=== PATIENT | female | born 1970 | race Caucasian/White ===

== ENCOUNTER 2016-06-24 17:48 | Emergency (ER) | payer OTHER ==
--- NOTE | 2016-06-24 20:25 | DIAGNOSTIC IMAGING REPORT ---
PROCEDURE: XR KNEE 4 VIEWS - RIGHT INDICATION: TRAUMA/INJURY TECHNIQUE: Four views. COMPARISON: None. FINDINGS: Status post right total knee prosthesis with prosthetic components in satisfactory position. Osseous structures and joint spaces are normal. No evidence of fracture. IMPRESSION: 1. Status post right total knee prosthesis. 2. Otherwise negative right knee. 3. Findings discussed with Dr. Shai Ojeda.
--- NOTE | 2016-06-24 20:28 | ED CLINICAL REPORT ---
Clinical Report - Physicians/Mid Levels [facility] [address] [place] [address] 06/24/2016 17:50 Patient: NATALIE HUNTLEY Time Seen: 18:05; initial patient contact. Arrived- By private vehicle. Historian- patient. HISTORY OF PRESENT ILLNESS Location of injuries- right knee. Chief Complaint: FALL. The injury occurred just prior to arrival. Fell and landed on a wood surface; tripped. No fainting episodes. Occurred at home. The patient complains of severe pain. No blow to the head or loss of consciousness. REVIEW OF SYSTEMS The patient complains of pain on weight bearing. No numbness, dizziness, weakness or laceration. All systems otherwise negative, except as recorded above. PAST HISTORY Appendectomy. Knee Surgeryx 2(2nd one TKR). Problems: no known problems. Medications: Aleve Oral. Dilaudid Oral. Ibuprofen Oral. Allergies: Penicillins. SOCIAL HISTORY Never smoker. Occasional alcohol use. No drug use. ADDITIONAL NOTES The nursing notes have been reviewed. PHYSICAL EXAM Vital Signs: 06/24/2016 18:05 BP: 158/102. HR: 87. RR: 20. O2 saturation: 98%. Temp: 98.2 F. Pain level now: 9/10. Have been reviewed. Hypertensive. Heart rate normal. Respiratory rate normal. Temperature normal. Oxygen saturation normal. Appearance: Alert. Oriented X3. Appears to be in pain. ENT: Pharynx normal. Respiratory: No respiratory distress. Skin: Skin intact. Skin warm and dry. Normal skin color. Extremities: Right knee: moderate tenderness. Limited ROM secondary to pain (diminished extension). Neurovascular intact distally. (Well healed TKR scar). No erythema, swelling, abrasion, ecchymosis or deformity. Extremities atraumatic. Neuro: Oriented X 3. No motor deficit. No sensory deficit. LABS, X-RAYS, AND EKG Rt Knee X-ray: No fracture. Normal alignment. No bony lesion, air in the soft tissue or foreign body. Soft tissues normal. Joint spaces normal. (Nl hardware allignment). Views: AP, lateral and oblique. Technique: good. The X-rays were independently viewed by me, interpreted by the radiologist and discussed with the radiologist. Prior films were not available for comparison. Interpretation time: 20:27. PROGRESS AND PROCEDURES Disposition: Discharged home in good and improved condition. Condition: good. CLINICAL IMPRESSION Sprain of the right knee. INSTRUCTIONS Wear knee immobilizer until released. No weight bearing on right leg until released. Your Current Medications: CONTINUE TAKING THE FOLLOWING MEDICATIONS: Aleve Oral. Dilaudid Oral. Ibuprofen Oral. Prescription Medications: Hydrocodone/APAP 5mg / 325mg: take 1 orally every 6 hours. Dispense fifteen (15). No refill. Baclofen 10 mg: take 1 orally every 8 hours. Dispense thirty (30). No refills. Follow-up: Follow up with your doctor tomorrow. Call for an appointment. Screening today revealed the patient's blood pressure to be in the hypertensive range. The patient should follow up with a primary care provider for blood pressure management. (Electronically signed by Shai Ojeda Dr. 06/24/2016 21:50)
--- NOTE | 2016-06-24 20:28 | ED ORDER SUMMARY ---
..... Patient: NATALIE HUNTLEY OrderSheet [facility] VisitID: [id number] [address] [place] [address] 45y, F Registration Date/Time: 06/24/2016 ORDER SHEET Weight: 104.3 kg (stated) Allergies: Penicillins GENERAL ORDERS: Knee 4V Right Urgent (18:43 06/24/2016 Christiano Traore) (Ack 18:[facility] (19:17 RFay) Immobilizer - knee (19:51 06/24/2016 Christiano Traoer) (20:03 Nancy R.NJonathan) MEDICATION ORDERS: Dilaudid IM 1 mg (HIGH ALERT MEDICATION, NOW) (18:43 06/24/2016 Christiano Traore) (18:58 Omid R.N.) IV FLUIDS: ORDER SHEET NOTES: [Electronically signed by Erin Pham R.N. (20:43 06/24/2016)] [Electronically signed by Shai Ojeda Dr. (21:50 06/24/2016)] [Electronically locked/signed by Erin Pham R.N. (20:43 06/24/2016)]
--- NOTE | 2016-06-24 20:28 | ED ORDER SUMMARY ---
..... Patient: NATALIE HUNTLEY OrderSheet [facility] VisitID: [id number] [address] [place] [address] 45y, F Registration Date/Time: 06/24/2016 ORDER SHEET Weight: 104.3 kg (stated) Allergies: Penicillins GENERAL ORDERS: Knee 4V Right Urgent (18:43 06/24/2016 Christiano Traore) (Ack 18:46 [facility]) (19:17 RFay) Immobilizer - knee (19:51 06/24/2016 Christiano Traore) (20:03 Nancy R.NJonathan) MEDICATION ORDERS: Dilaudid IM 1 mg (HIGH ALERT MEDICATION, NOW) (18:43 06/24/2016 Christiano Traore) (18:58 Omid R.N.) IV FLUIDS: ORDER SHEET NOTES: [Electronically signed by Erin Pham R.N. (20:43 06/24/2016)] [Electronically signed by Shai Ojeda Dr. (21:50 06/24/2016)] [Electronically locked/signed by Erin Pham R.N. (20:43 06/24/2016)]
--- NOTE | 2016-06-24 20:28 | ED CLINICAL REPORT ---
Clinical Report - Physicians/Mid Levels [facility] [address] [place] [address] 06/24/2016 17:50 Patient: NATALIE HUNTLEY Time Seen: 18:05; initial patient contact. Arrived- By private vehicle. Historian- patient. HISTORY OF PRESENT ILLNESS Location of injuries- right knee. Chief Complaint: FALL. The injury occurred just prior to arrival. Fell and landed on a wood surface; tripped. No fainting episodes. Occurred at home. The patient complains of severe pain. No blow to the head or loss of consciousness. REVIEW OF SYSTEMS The patient complains of pain on weight bearing. No numbness, dizziness, weakness or laceration. All systems otherwise negative, except as recorded above. PAST HISTORY Appendectomy. Knee Surgeryx 2(2nd one TKR). Problems: no known problems. Medications: Aleve Oral. Dilaudid Oral. Ibuprofen Oral. Allergies: Penicillins. SOCIAL HISTORY Never smoker. Occasional alcohol use. No drug use. ADDITIONAL NOTES The nursing notes have been reviewed. PHYSICAL EXAM Vital Signs: 06/24/2016 18:05 BP: 158/102. HR: 87. RR: 20. O2 saturation: 98%. Temp: 98.2 F. Pain level now: 9/10. Have been reviewed. Hypertensive. Heart rate normal. Respiratory rate normal. Temperature normal. Oxygen saturation normal. Appearance: Alert. Oriented X3. Appears to be in pain. ENT: Pharynx normal. Respiratory: No respiratory distress. Skin: Skin intact. Skin warm and dry. Normal skin color. Extremities: Right knee: moderate tenderness. Limited ROM secondary to pain (diminished extension). Neurovascular intact distally. (Well healed TKR scar). No erythema, swelling, abrasion, ecchymosis or deformity. Extremities atraumatic. Neuro: Oriented X 3. No motor deficit. No sensory deficit. LABS, X-RAYS, AND EKG Rt Knee X-ray: No fracture. Normal alignment. No bony lesion, air in the soft tissue or foreign body. Soft tissues normal. Joint spaces normal. (Nl hardware allignment). Views: AP, lateral and oblique. Technique: good. The X-rays were independently viewed by me, interpreted by the radiologist and discussed with the radiologist. Prior films were not available for comparison. Interpretation time: 20:27. PROGRESS AND PROCEDURES Disposition: Discharged home in good and improved condition. Condition: good. CLINICAL IMPRESSION Sprain of the right knee. INSTRUCTIONS Wear knee immobilizer until released. No weight bearing on right leg until released. Your Current Medications: CONTINUE TAKING THE FOLLOWING MEDICATIONS: Aleve Oral. Dilaudid Oral. Ibuprofen Oral. Prescription Medications: Hydrocodone/APAP 5mg / 325mg: take 1 orally every 6 hours. Dispense fifteen (15). No refill. Baclofen 10 mg: take 1 orally every 8 hours. Dispense thirty (30). No refills. Follow-up: Follow up with your doctor tomorrow. Call for an appointment. Screening today revealed the patient's blood pressure to be in the hypertensive range. The patient should follow up with a primary care provider for blood pressure management. (Electronically signed by Shai Ojeda Dr. 06/24/2016 21:50)
--- NOTE | 2016-06-24 20:28 | ED NURSING NOTES ---
Clinical Report - Nurses [facility] [address] [address] 06/24/2016 17:50 Patient: NATALIE HUNTLEY TRIAGE Triage time 18:05. Acuity: LEVEL 3. Chief Complaint: INJURY TO RIGHT KNEE. DAKSHA COMA SCORE: [place] Coma Scale: 15- eyes open spontaneously (4); best verbal response- oriented x 4 (5); best motor response- obeys commands (6). --18:13 Mary Musa R.N. 18:05 06/24/16. BP: 158/102. HR: 87. RR: 20. O2 saturation: 98%. Temp: 98.2 F (oral). Pain level now: 12/12. --18:13 Mary Musa R.N. Weight: 104.3 kg stated. Height/Length: 68 inches Per Patient. BMI: 35. --18:08 Mary Musa R.N. Medications Aleve Oral. Dilaudid Oral. Ibuprofen Oral. --18:06 Mary Musa R.N. Medication/allergy information source: the patient. --18:13 Mary Musa R.N. Allergies Penicillins. --18:07 Mary Musa R.N. History Arrived by private vehicle. Historian: patient. Accompanied by family. Primary physician (Beatriz). This occurred just prior to arrival. Mechanism of injury: fell while walking and landed on a wood surface. PAST MEDICAL HX: Last normal menstrual period- has IUD. SOCIAL HX: Smoker- current status unknown (no). Alcohol use; consumes liquor daily. No drug use. LEARNING NEEDS ASSESSMENT: The learning needs assessment revealed no barriers. FALL RISK ASSESSMENT: Fall risk assessment completed. Risk factors identified include patient history of fall and impairment of mobility. FUNCTIONAL ASSESSMENT: Functional assessment performed: independent with the activities of daily living; mobility impairment present- this mobility impairment is a new problem. crutches. --18:13 Mary Musa R.N. PROBLEMS: no known problems. ADDITIONAL SURGERIES: Appendectomy. Knee Surgery. --18:07 Mary Musa R.N. Assessment GENERAL / NEURO / PSYCH: The patient is awake and alert and appears in pain and uncomfortable. She is oriented and cooperative. RESPIRATORY: Respirations not labored. SKIN: Skin is warm and dry. --18:13 Mary Musa R.N. Interventions ID and allergy band on patient. To treatment room. --18:13 Mary Musa R.N. PHYSICAL ASSESSMENT 18:18 06/24/16. Ambulatory to room. Patient gowned. GENERAL / NEURO / PSYCH: Oriented X 4. Alert. SKIN: Skin is warm and dry. --18:18 Mary Musa R.N. NURSING PROGRESS NOTES <<STRICKEN ENTRY-- 18:19 06/24/16. No immobilizer applied. Call light placed in reach. Side rails up x 1. Bed placed in lowest position. Brakes of bed on. --18:20 Mary Musa R.N. --END STRIKE>> Correction --18:28 Mary Musa R.N. 18:19 06/24/16. Call light placed in reach. Side rails up x 1. Bed placed in lowest position. Brakes of bed on. --18:28 Mary Musa R.N. 18:50 06/24/2016 Dilaudid (HYDROmorphone HCl PF) IM 1 mg given. Given in the left ventral gluteus. Allergies verified, confirmed 5 rights and sedative warning given to the patient. --18:58 Mary Musa R.N. 19:08 06/24/16. Care transferred and report received (from ELVIRA Hernandez). --19:08 Erin Pham R.N. 19:16 06/24/16. Reassessment after medication administered. She has had no adverse reaction. Overall patient status is improved- she states feels better. Patient waiting for radiology results and disposition. --19:16 Erin Pham R.N. 19:16 06/24/16. BP: 147/98. HR: 76. RR: 18. O2 saturation: 97%. Pain level now 7/10. --19:16 Erin Pham R.N. Immobilizer applied to right knee by traffic analysis technician; distal pulses intact, sensation intact and motor function within normal limits. --20:16 Jose D Hutchins 20:19 06/24/16. Patient waiting for disposition. --20:19 Erin Pham R.N. 20:19 06/24/16. BP: 146/105. HR: 90. RR: 18. O2 saturation: 100%. Temp: 98.0 F. Pain level now 10/11. --20:19 Erin Pham R.N. DISPOSITION / DISCHARGE 20:33 06/24/16. Condition at departure: improved and stable. The goals identified in the patient's plan of care were met. ( GCS 15). --20:33 Erin Pham R.N. 20:33 06/24/16. BP: 146/105. HR: 94. RR: 18. O2 saturation: 100%. Temp: 98.0 F. Pain level now 10/11. --20:33 Erin Pham R.N. 20:43 06/24/16. Departure time: :Jun 24 2016. No learning barriers present. Discharge instructions provided and reviewed with the patient. Reviewed medication(s) side effects, precautions, dosing and course information. Prescription(s) given to the patient. Reviewed referral to an orthopedic surgeon for followup. Summary of care provided to patient via paper. Patient verbalized understanding. Written instructions provided in Samoan. The patient was discharged home and accompanied by family. She left the Emergency Department ambulatory on crutches and via private vehicle. Family member driving. --20:43 Erin Pham R.N. Locked/Released at 06/24/2016 20:43 by Erin Pham R.N.
--- NOTE | 2016-06-24 20:28 | ED NURSING NOTES ---
Clinical Report - Nurses [facility] [place] [address] 06/24/2016 17:50 Patient: NATALIE HUNTLEY TRIAGE Triage time 18:05. Acuity: LEVEL 3. Chief Complaint: INJURY TO RIGHT KNEE. DAKSHA COMA SCORE: [place] Coma Scale: 15- eyes open spontaneously (4); best verbal response- oriented x 4 (5); best motor response- obeys commands (6). --18:13 Mary Musa R.N. 18:05 06/24/16. BP: 158/102. HR: 87. RR: 20. O2 saturation: 98%. Temp: 98.2 F (oral). Pain level now: 12/12. --18:13 Mary Musa R.N. Weight: 104.3 kg stated. Height/Length: 68 inches Per Patient. BMI: 35. --18:08 Mary Musa R.N. Medications Aleve Oral. Dilaudid Oral. Ibuprofen Oral. --18:06 Mary Musa R.N. Medication/allergy information source: the patient. --18:13 Mary Musa R.N. Allergies Penicillins. --18:07 Mary Musa R.N. History Arrived by private vehicle. Historian: patient. Accompanied by family. Primary physician (Beatriz). This occurred just prior to arrival. Mechanism of injury: fell while walking and landed on a wood surface. PAST MEDICAL HX: Last normal menstrual period- has IUD. SOCIAL HX: Smoker- current status unknown (no). Alcohol use; consumes liquor daily. No drug use. LEARNING NEEDS ASSESSMENT: The learning needs assessment revealed no barriers. FALL RISK ASSESSMENT: Fall risk assessment completed. Risk factors identified include patient history of fall and impairment of mobility. FUNCTIONAL ASSESSMENT: Functional assessment performed: independent with the activities of daily living; mobility impairment present- this mobility impairment is a new problem. crutches. --18:13 Mary Musa R.N. PROBLEMS: no known problems. ADDITIONAL SURGERIES: Appendectomy. Knee Surgery. --18:07 Mary Musa R.N. Assessment GENERAL / NEURO / PSYCH: The patient is awake and alert and appears in pain and uncomfortable. She is oriented and cooperative. RESPIRATORY: Respirations not labored. SKIN: Skin is warm and dry. --18:13 Mary Musa R.N. Interventions ID and allergy band on patient. To treatment room. --18:13 Mary Musa R.N. PHYSICAL ASSESSMENT 18:18 06/24/16. Ambulatory to room. Patient gowned. GENERAL / NEURO / PSYCH: Oriented X 4. Alert. SKIN: Skin is warm and dry. --18:18 Mary Musa R.N. NURSING PROGRESS NOTES <<STRICKEN ENTRY-- 18:19 06/24/16. No immobilizer applied. Call light placed in reach. Side rails up x 1. Bed placed in lowest position. Brakes of bed on. --18:20 Mary Musa R.N. --END STRIKE>> Correction --18:28 Mary Musa R.N. 18:19 06/24/16. Call light placed in reach. Side rails up x 1. Bed placed in lowest position. Brakes of bed on. --18:28 Mary Musa R.N. 18:50 06/24/2016 Dilaudid (HYDROmorphone HCl PF) IM 1 mg given. Given in the left ventral gluteus. Allergies verified, confirmed 5 rights and sedative warning given to the patient. --18:58 Mary Musa R.N. 19:08 06/24/16. Care transferred and report received (from ELVIRA Hernandez). --19:08 Erin Pham R.N. 19:16 06/24/16. Reassessment after medication administered. She has had no adverse reaction. Overall patient status is improved- she states feels better. Patient waiting for radiology results and disposition. --19:16 Erin Pham R.N. 19:16 06/24/16. BP: 147/98. HR: 76. RR: 18. O2 saturation: 97%. Pain level now 7/10. --19:16 Erin Pham R.N. Immobilizer applied to right knee by plant and maintenance technician; distal pulses intact, sensation intact and motor function within normal limits. --20:16 Jose D Hutchins 20:19 06/24/16. Patient waiting for disposition. --20:19 Erin Pham R.N. 20:19 06/24/16. BP: 146/105. HR: 90. RR: 18. O2 saturation: 100%. Temp: 98.0 F. Pain level now 10/11. --20:19 Erin Pham R.N. DISPOSITION / DISCHARGE 20:33 06/24/16. Condition at departure: improved and stable. The goals identified in the patient's plan of care were met. ( GCS 15). --20:33 Erin Pham R.N. 20:33 06/24/16. BP: 146/105. HR: 94. RR: 18. O2 saturation: 100%. Temp: 98.0 F. Pain level now 10/11. --20:33 Erin Pham R.N. 20:43 06/24/16. Departure time: :Jun 24 2016. No learning barriers present. Discharge instructions provided and reviewed with the patient. Reviewed medication(s) side effects, precautions, dosing and course information. Prescription(s) given to the patient. Reviewed referral to an orthopedic surgeon for followup. Summary of care provided to patient via paper. Patient verbalized understanding. Written instructions provided in Barbadian. The patient was discharged home and accompanied by family. She left the Emergency Department ambulatory on crutches and via private vehicle. Family member driving. --20:43 Erin Pham R.N. Locked/Released at 06/24/2016 20:43 by Erin Pham R.N.
--- NOTE | 2016-06-24 21:50 | ED DISCHARGE INSTRUCTIONS ---
Patient: NATALIE HUNTLEY General Instructions [facility] VisitID: [id number] [place] [address] 45y, F Registration Date/Time: 06/24/2016 Sprain of the right knee. INSTRUCTIONS Wear knee immobilizer until released. No weight bearing on right leg until released. Your Current Medications: CONTINUE TAKING THE FOLLOWING MEDICATIONS: Aleve Oral. Dilaudid Oral. Ibuprofen Oral. Prescription Medications: Hydrocodone/APAP 5mg / 325mg: take 1 orally every 6 hours. Dispense fifteen (15). No refill. Baclofen 10 mg: take 1 orally every 8 hours. Dispense thirty (30). No refills. Follow-up: Follow up with your doctor tomorrow. Call for an appointment. Screening today revealed the patient's blood pressure to be in the hypertensive range. The patient should follow up with a primary care provider for blood pressure management. ADDITIONAL INFORMATION Hydrocodone Bitartrate, Acetaminophen Oral tablet What is this medicine? ACETAMINOPHEN; HYDROCODONE (a set a JULIO carol fen; senthil droe KOE done) is a pain reliever. It is used to treat mild to moderate pain. How should I use this medicine? Take this medicine by mouth. Swallow it with a full glass of water. Follow the directions on the prescription label. If the medicine upsets your stomach, take the medicine with food or milk. Do not take more than you are told to take. Talk to your saute chef regarding the use of this medicine in children. This medicine is not approved for use in children. What side effects may I notice from receiving this medicine? Side effects that you should report to your doctor or health careers adviser as soon as possible: allergic reactions like skin rash, itching or hives, swelling of the face, lips, or tongue breathing problems confusion feeling faint or lightheaded, falls stomach pain yellowing of the eyes or skin Side effects that usually do not require medical attention (report to your doctor or health careers adviser if they continue or are bothersome): nausea, vomiting stomach upset What may interact with this medicine? alcohol antihistamines isoniazid medicines for depression, anxiety, or psychotic disturbances medicines for sleep muscle relaxants naltrexone narcotic medicines (opiates) for pain phenobarbital ritonavir tramadol What if I miss a dose? If you miss a dose, take it as soon as you can. If it is almost time for your next dose, take only that dose. Do not take double or extra doses. Where should I keep my medicine? Keep out of the reach of children. This medicine can be abused. Keep your medicine in a safe place to protect it from theft. Do not share this medicine with anyone. Selling or giving away this medicine is dangerous and against the law. Store at room temperature between 15 and 30 degrees C (59 and 86 degrees F). Protect from light. Keep container tightly closed. Throw away any unused medicine after the expiration date. Discard unused medicine and used packaging carefully. Pets and children can be harmed if they find used or lost packages. What should I tell my health care provider before I take this medicine? They need to know if you have any of these conditions: brain tumor Crohn's disease, inflammatory bowel disease, or ulcerative colitis drink more than 3 alcohol-containing drinks per day drug abuse or addiction head injury heart or circulation problems kidney disease or problems going to the bathroom liver disease lung disease, asthma, or breathing problems an unusual or allergic reaction to acetaminophen, hydrocodone, other opioid analgesics, other medicines, foods, dyes, or preservatives or trying to get breast-feeding What should I watch for while using this medicine? Tell your doctor or health careers adviser if your pain does not go away, if it gets worse, or if you have new or a different type of pain. You may develop tolerance to the medicine. Tolerance means that you will need a higher dose of the medicine for pain relief. Tolerance is normal and is expected if you take the medicine for a long time. Do not suddenly stop taking your medicine because you may develop a severe reaction. Your body becomes used to the medicine. This does NOT mean you are addicted. Addiction is a behavior related to getting and using a drug for a non-medical reason. If you have pain, you have a medical reason to take pain medicine. Your doctor will tell you how much medicine to take. If your doctor wants you to stop the medicine, the dose will be slowly lowered over time to avoid any side effects. You may get drowsy or dizzy when you first start taking the medicine or change doses. Do not drive, use machinery, or do anything that may be dangerous until you know how the medicine affects you. Stand or sit up slowly. There are different types of narcotic medicines (opiates) for pain. If you take more than one type at the same time, you may have more side effects. Give your health care provider a list of all medicines you use. Your doctor will tell you how much medicine to take. Do not take more medicine than directed. Call emergency for help if you have problems breathing. The medicine will cause constipation. Try to have a bowel movement at least every 2 to 3 days. If you do not have a bowel movement for 3 days, call your doctor or health careers adviser. Too much acetaminophen can be very dangerous. Do not take Tylenol (acetaminophen) or medicines that contain acetaminophen with this medicine. Many non-prescription medicines contain acetaminophen. Always read the labels carefully. You have been given the following additional information: Hydrocodone Bitartrate, Acetaminophen Oral tablet No weight bearing on right leg until released. (Electronically signed by Shai Ojeda Dr. 06/24/2016 21:50)
--- NOTE | 2016-06-24 21:50 | ED MED RECONCILIATION SUMMARY ---
Patient: NATALIE HUNTLEY Medication Reconciliation Report [facility] VisitID: [id number] [address] [place] [address] 45y, F Registration Date/Time: 06/24/2016 Weight: 104.3 kg Height/Length: 68 in. BMI: 35.0 ALLERGIES: Penicillins The patient's Home Medications are listed below: CONTINUE TAKING THE FOLLOWING MEDICATIONS: Aleve Oral Dilaudid Oral Ibuprofen Oral The source(s) of the original Home Medication information: patient The following Medications were given to the patient in the Emergency Department: Dilaudid [IM] IM 1 mg, administered: 06/24/2016 6:50:00 PM The following Medications were prescribed to the patient: Hydrocodone/APAP 5mg / 325mg: take 1 orally every 6 hours. Dispense fifteen (15). No refill. -- Shai Ojeda Dr. Baclofen 10 mg: take 1 orally every 8 hours. Dispense thirty (30). No refills. -- Shai Ojeda Dr.
--- NOTE | 2016-06-24 21:50 | ED MAR SUMMARY ---
..... Medication Administration Record [facility] [address] [place] [address] Patient: NATALIE HUNTLEY Visit ID: [id number] 45y, F Weight: 104.3 kg Height/Length: 68 in BMI: 35 ALLERGIES: Penicillins Given 18:50 06/24/2016 Mary Musa R.N. Medication Administered: DILAUDID [IM] (HYDROMORPHONE HCL PF), Dose: 1 mg IM. Medication Ordered: Dilaudid IM 1 mg (HIGH ALERT MEDICATION, NOW).
--- NOTE | 2016-06-24 21:50 | ED MAR SUMMARY ---
..... Medication Administration Record [facility] [address] [place] [address] Patient: NATALIE HUNTLEY Visit ID: [id number] 45y, F Weight: 104.3 kg Height/Length: 68 in BMI: 35 ALLERGIES: Penicillins Given 18:50 06/24/2016 Mary Musa R.N. Medication Administered: DILAUDID [IM] (HYDROMORPHONE HCL PF), Dose: 1 mg IM. Medication Ordered: Dilaudid IM 1 mg (HIGH ALERT MEDICATION, NOW).
--- NOTE | 2016-06-24 21:50 | ED DISCHARGE INSTRUCTIONS ---
Patient: NATALIE HUNTLEY General Instructions [facility] VisitID: [id number] [place] [address] 45y, F Registration Date/Time: 06/24/2016 Sprain of the right knee. INSTRUCTIONS Wear knee immobilizer until released. No weight bearing on right leg until released. Your Current Medications: CONTINUE TAKING THE FOLLOWING MEDICATIONS: Aleve Oral. Dilaudid Oral. Ibuprofen Oral. Prescription Medications: Hydrocodone/APAP 5mg / 325mg: take 1 orally every 6 hours. Dispense fifteen (15). No refill. Baclofen 10 mg: take 1 orally every 8 hours. Dispense thirty (30). No refills. Follow-up: Follow up with your doctor tomorrow. Call for an appointment. Screening today revealed the patient's blood pressure to be in the hypertensive range. The patient should follow up with a primary care provider for blood pressure management. ADDITIONAL INFORMATION Hydrocodone Bitartrate, Acetaminophen Oral tablet What is this medicine? ACETAMINOPHEN; HYDROCODONE (a set a JULIO carol fen; senthil droe KOE done) is a pain reliever. It is used to treat mild to moderate pain. How should I use this medicine? Take this medicine by mouth. Swallow it with a full glass of water. Follow the directions on the prescription label. If the medicine upsets your stomach, take the medicine with food or milk. Do not take more than you are told to take. Talk to your group worker regarding the use of this medicine in children. This medicine is not approved for use in children. What side effects may I notice from receiving this medicine? Side effects that you should report to your doctor or health sub acute care nurse as soon as possible: allergic reactions like skin rash, itching or hives, swelling of the face, lips, or tongue breathing problems confusion feeling faint or lightheaded, falls stomach pain yellowing of the eyes or skin Side effects that usually do not require medical attention (report to your doctor or health sub acute care nurse if they continue or are bothersome): nausea, vomiting stomach upset What may interact with this medicine? alcohol antihistamines isoniazid medicines for depression, anxiety, or psychotic disturbances medicines for sleep muscle relaxants naltrexone narcotic medicines (opiates) for pain phenobarbital ritonavir tramadol What if I miss a dose? If you miss a dose, take it as soon as you can. If it is almost time for your next dose, take only that dose. Do not take double or extra doses. Where should I keep my medicine? Keep out of the reach of children. This medicine can be abused. Keep your medicine in a safe place to protect it from theft. Do not share this medicine with anyone. Selling or giving away this medicine is dangerous and against the law. Store at room temperature between 15 and 30 degrees C (59 and 86 degrees F). Protect from light. Keep container tightly closed. Throw away any unused medicine after the expiration date. Discard unused medicine and used packaging carefully. Pets and children can be harmed if they find used or lost packages. What should I tell my health care provider before I take this medicine? They need to know if you have any of these conditions: brain tumor Crohn's disease, inflammatory bowel disease, or ulcerative colitis drink more than 3 alcohol-containing drinks per day drug abuse or addiction head injury heart or circulation problems kidney disease or problems going to the bathroom liver disease lung disease, asthma, or breathing problems an unusual or allergic reaction to acetaminophen, hydrocodone, other opioid analgesics, other medicines, foods, dyes, or preservatives or trying to get breast-feeding What should I watch for while using this medicine? Tell your doctor or health sub acute care nurse if your pain does not go away, if it gets worse, or if you have new or a different type of pain. You may develop tolerance to the medicine. Tolerance means that you will need a higher dose of the medicine for pain relief. Tolerance is normal and is expected if you take the medicine for a long time. Do not suddenly stop taking your medicine because you may develop a severe reaction. Your body becomes used to the medicine. This does NOT mean you are addicted. Addiction is a behavior related to getting and using a drug for a non-medical reason. If you have pain, you have a medical reason to take pain medicine. Your doctor will tell you how much medicine to take. If your doctor wants you to stop the medicine, the dose will be slowly lowered over time to avoid any side effects. You may get drowsy or dizzy when you first start taking the medicine or change doses. Do not drive, use machinery, or do anything that may be dangerous until you know how the medicine affects you. Stand or sit up slowly. There are different types of narcotic medicines (opiates) for pain. If you take more than one type at the same time, you may have more side effects. Give your health care provider a list of all medicines you use. Your doctor will tell you how much medicine to take. Do not take more medicine than directed. Call emergency for help if you have problems breathing. The medicine will cause constipation. Try to have a bowel movement at least every 2 to 3 days. If you do not have a bowel movement for 3 days, call your doctor or health sub acute care nurse. Too much acetaminophen can be very dangerous. Do not take Tylenol (acetaminophen) or medicines that contain acetaminophen with this medicine. Many non-prescription medicines contain acetaminophen. Always read the labels carefully. You have been given the following additional information: Hydrocodone Bitartrate, Acetaminophen Oral tablet No weight bearing on right leg until released. (Electronically signed by Shai Ojeda Dr. 06/24/2016 21:50)
--- NOTE | 2016-06-24 21:50 | ED MED RECONCILIATION SUMMARY ---
Patient: NATALIE HUNTLEY Medication Reconciliation Report [facility] VisitID: [id number] [address] [place] [address] 45y, F Registration Date/Time: 06/24/2016 Weight: 104.3 kg Height/Length: 68 in. BMI: 35.0 ALLERGIES: Penicillins The patient's Home Medications are listed below: CONTINUE TAKING THE FOLLOWING MEDICATIONS: Aleve Oral Dilaudid Oral Ibuprofen Oral The source(s) of the original Home Medication information: patient The following Medications were given to the patient in the Emergency Department: Dilaudid [IM] IM 1 mg, administered: 06/24/2016 6:50:00 PM The following Medications were prescribed to the patient: Hydrocodone/APAP 5mg / 325mg: take 1 orally every 6 hours. Dispense fifteen (15). No refill. -- Shai Ojeda Dr. Baclofen 10 mg: take 1 orally every 8 hours. Dispense thirty (30). No refills. -- Shai Ojeda Dr.
== END 2016-06-24 20:43 | disposition home or self-care (01) ==
LOC: ED SRH 17:48
DX: S83.91XA Sprain of unspecified site of right knee, initial encounter (principal); W01.0XXA Fall on same level from slipping, tripping and stumbling without subsequent striking against object, initial encounter; Y93.9 Activity, unspecified; Y92.9 Unspecified place or not applicable; Y99.9 Unspecified external cause status; Z88.0 Allergy status to penicillin